=== PATIENT | female | born 1985 | race Caucasian/White ===

== ENCOUNTER 2016-07-14 19:50 | Observation (INO) | payer MEDICAID ==
[~2016-07-14] VITALS: Ht 160 cm; Wt 116.6 kg
[~2016-07-14 19:50] MED LIST: BIRTH CONTROLL; NORPTMEDS CO; ONDANSETRON ODT 8 MG TABLET; [UNRECOGNIZED DRUG - OTHER]
[2016-07-14 21:04] LABS: Basophils # (auto) 0.1 uL; Basophils % (auto) 0.5 % (0.0-2.0); Eosinophils # (auto) 0.1 uL; Eosinophils % (auto) 0.9 % (0.0-7.0); Hematocrit 44.7 % (36.0-46.0); Hemoglobin 14.8 g/dL (12.2-16.2); Lymphocytes # (auto) 3.3 uL; Lymphocytes % (auto) 25.8 % (10.0-50.0); Mean Corpuscular Hemoglobin 30.3 pg (28.0-32.0); Mean Corpuscular Hgb Conc. 33.1 g/dL (32.0-36.0); Mean Corpuscular Volume 91.5 fL (80.0-100.0); Mean Platelet Volume 6.7 fL (7.4-10.4); Monocytes # (auto) 0.9 uL; Monocytes % (auto) 7.1 % (0.0-12.0); Neutrophils # (auto) 8.3 uL; Neutrophils % (auto) 65.7 % (37.0-80.0); Platelet Count (auto) 444 10^3/uL (140-450); Red Cell Distribution Width 13.4 % (11.6-16.0); White Blood Cell 12.7 10^3/uL (4.4-10.8)
[2016-07-14 21:11] LABS: Urine Bilirubin Negative (Negative); Urine Color Yellow (Yellow); Urine Glucose Normal (Normal); Urine Ketone Negative (Negative); Urine Mucus FEW (None Seen); Urine Nitrite Negative (Negative); Urine RBC 2 /hpf (0 - 4); Urine Squamous Epithelial Cell FEW /hpf (<5); Urine Urobilinogen Normal (Negative); Urine pH 5.5 (5.0-8.0)
[2016-07-14 21:13] LABS: Urine Blood 1+ /uL (Negative)
[2016-07-14 21:36] LABS: Albumin 4.1 g/dL (3.4-5.0); Bilirubin, Total 0.2 mg/dL (0.2-1.0); Calcium 9.1 mg/dL (8.5-10.1); Potassium 4.5 mmol/L (3.5-5.1); Total Protein 8.1 g/dL (6.4-8.2)
[2016-07-15] MEDS ORDERED: CITA-73 PO (01:18)
[2016-07-15] MEDS ORDERED: BENZ100C70 PO (01:18)
[2016-07-15] MEDS ORDERED: PSEU-123 PO (01:18)
[2016-07-15] MEDS ORDERED: TOPI25TA84 PO (01:18)
[2016-07-15] MEDS ORDERED: ALBUTEROL SULF 2.5 MG/0.5ML(0.5%) NEB SOLN NEB ONE (02:15)
[2016-07-15] MEDS ORDERED: IPRATROPIUM BROM 0.5 MG/2.5ML INH SOL NEB ONE (02:15)
[2016-07-15] MEDS ORDERED: methylPREDNISolone SOD SUCC 125 MG/2 ML VL IV ONE (02:15)
[2016-07-15] MEDS ORDERED: PROMETHAZINE W/CODEINE 5 ML ORAL SYRUP PO ONE (02:15)
[2016-07-15] MEDS ORDERED: SODIUM CHLORIDE 0.9% 1,000 ML IV ONE (02:15)
[2016-07-15 04:03] VITALS: BP 133/64
== END 2016-07-15 04:24 | disposition home or self-care (01) | DRG 141 ==
LOC: ER 19:50 → TELE 19:51 → UNDOADMOB 19:51 → UNDODISOB 19:52 → OVERFLOW 07-15 02:23 → ER 07-15 04:24 → UNDODISOB 07-15 04:24 → ER 07-15 04:26
PROVIDERS: ADMIT Emergency Medicine; ATTEND Emergency Medicine
DX: J45.901 Unspecified asthma with (acute) exacerbation (principal)
CPT/HCPCS: 36415; 71020; 80053; 81001; 84484; 85025; 93005; 94640; 96361; 96374; 99285; G0378; J2930; J7030

== ENCOUNTER 2016-11-22 20:29 | Emergency (ER) | payer MEDICAID ==
[~2016-11-22] VITALS: Ht 160 cm; Wt 116.1 kg
[~2016-11-22 20:29] MED LIST changes: +BENZ100C70 PO; +CITA-73 PO; +PSEU-123 PO; +TOPI25TA84 PO
[2016-11-22 21:55] VITALS: BP 147/80
[2016-11-22] MEDS ORDERED: PROMETHAZINE HCL 25 MG/ML 1ML IM ONE (22:15)
[2016-11-22] MEDS ORDERED: KETOROLAC TROMETH 60MG/2ML VIAL IM ONE (22:15)
[2016-11-22] MEDS ORDERED: diphenhdrAMINE HCL 25 MG CAP PO ONE (22:15)
== END 2016-11-22 23:01 | disposition home or self-care (01) ==
LOC: ER 20:41
DX: G43.909 Migraine, unspecified, not intractable, without status migrainosus (principal); J45.909 Unspecified asthma, uncomplicated
CPT/HCPCS: 96372; 99284; J1885; J2550

== ENCOUNTER 2019-10-15 07:53 | Emergency (ER) | payer OTHER ==
[~2019-10-15] VITALS: Ht 160 cm; Wt 81.6 kg
[2019-10-15] MEDS ORDERED: KETOROLAC TROMETH 60MG/2ML VIAL IM ONE (08:30)
[2019-10-15 09:08] VITALS: BP 134/87
== END 2019-10-15 09:46 | disposition home or self-care (01) ==
LOC: ER 07:53 → EDBD 07:53 → ER 09:46
DX: S22.31XA Fracture of one rib, right side, initial encounter for closed fracture (principal); S83.91XA Sprain of unspecified site of right knee, initial encounter; S76.011A Strain of muscle, fascia and tendon of right hip, initial encounter; Z90.710 Acquired absence of both cervix and uterus; Z88.0 Allergy status to penicillin; V43.52XA Car driver injured in collision with other type car in traffic accident, initial encounter; Y93.89 Activity, other specified; Y92.488 Other paved roadways as the place of occurrence of the external cause; Y99.8 Other external cause status
CPT/HCPCS: 71045; 73502; 73562; 96372; 99284; J1885